=== PATIENT | male | born 1945 | race Caucasian/White ===

== ENCOUNTER 2024-02-14 16:58 | Outpatient (CLI) | payer MEDICARE | END 2024-02-14 23:59 | disposition short-term general hospital (02) | LOC: EMS 16:58 | DX: M25.551 Pain in right hip (principal); M79.89 Other specified soft tissue disorders; W01.0XXA Fall on same level from slipping, tripping and stumbling without subsequent striking against object, initial encounter; Y93.01 Activity, walking, marching and hiking; Y92.414 Local residential or business street as the place of occurrence of the external cause | CPT/HCPCS: A0425; A0427 ==